=== PATIENT | female | born 1965 | race Caucasian/White ===

== ENCOUNTER 2020-05-19 06:30 | Inpatient (IN) | payer MEDICARE ==
[2020-05-19 07:32] VITALS: BP 113/70
[2020-05-19] MEDS ORDERED: Acetaminophen 500 MG TAB PO PRN (12:30)
[2020-05-19] MEDS ORDERED: Maalox 30 mL Cup PO PRN (12:30)
[2020-05-19] MEDS ORDERED: Magnesium Hydroxide (MOM) 30 mL UDC PO PRN (12:30)
--- NOTE | 2020-05-19 14:53 | History & Physical ---
ADMIT DATE: 05/19/2020 CHIEF COMPLAINT: Suicidal ideations. HISTORY OF PRESENT ILLNESS: We have a 54-year-old female with rheumatoid arthritis, bipolar, who is admitted for suicidal ideation. The patient went to [facility] Emergency Room where she was having thoughts of hurting herself. The patient's outpatient meds have been adjusted. No nausea, vomiting, abdominal pain, diarrhea. PAST MEDICAL HISTORY: 1. Rheumatoid arthritis. 2. Bipolar. PAST SURGICAL HISTORY: Right knee replacement. MEDICATIONS: List reviewed. ALLERGIES: None. SOCIAL HISTORY: Tobacco, IV drugs, ETOH negative. PHYSICAL EXAMINATION: VITAL SIGNS: Temperature is 98.6, pulse 70, respirations 20, blood pressure 113/70. HEENT: Normocephalic, atraumatic head exam. NECK: Supple. CARDIOVASCULAR: Regular rate and rhythm. LUNGS: Decreased breath sounds. ABDOMEN: Soft, nontender. EXTREMITIES: No edema, cyanosis or clubbing. NEUROLOGIC: Cranial nerves are grossly intact, although the patient was very uncooperative. ASSESSMENT AND PLAN: 1. Rheumatoid arthritis. 2. Bipolar. The patient will continue with Naprosyn for treatment of rheumatoid arthritis. We will check COVID for asymptomatic spread. The patient will get routine labs. JOB# [id number]
--- NOTE | 2020-05-19 17:05 | History & Physical ---
ADMIT DATE: 05/19/2020 IDENTIFYING INFORMATION: The patient is a 54-year-old female. CHIEF COMPLAINT: The patient was admitted on a hold for danger to self. Apparently, the Emergency Room physician requested a psych evaluation. HISTORY OF PRESENT ILLNESS: The patient was having recent thoughts of killing herself. She is taking medications for bipolar disorder, but states they are not working. She stays her thoughts make her to kill herself via overdose on pills. History of previous placement on a hold. When I talked to her, she confirmed the above. The patient reports long history of depression. Also, she has been hospitalized many times. She also used THC for pain, appetite and sleep. The patient reports the doctor gave her Abilify, it did not work. She reports that she feel shaky in her head. Apparently, she had a black eye, left side and she said she fell and hit her head, no loss of consciousness. She reports she was hospitalized at least 10 times because of bipolar disorder. She currently sleeps well, eats well. She denies prior suicide attempt; however, she has been on a hold before. The patient reports any auditory or visual hallucinations. She says she is not impulsive, did not show up a lot. She denies any visual hallucination or paranoia. She denies having any anger outbursts. She mainly has racing thoughts. ONSET OF ILLNESS: The patient reports she has been having issues for a long period of time since she cannot remember. SUBSTANCE ABUSE HISTORY: The patient uses marijuana to help her with her sleep, appetite and pain. PAST MEDICAL HISTORY: The patient has rheumatoid arthritis since 1971. She has been in a lot of pain, nothing helped her. She is in a wheelchair. ALLERGIES: SHE IS ALLERGIC TO SULFA, ANTIBIOTIC AND NEOMYCIN. I will defer the rest to the medical doctor. FAMILY AND SOCIAL HISTORY: The patient reports she is single, never . She has one daughter, 26 years of age She lives with the father of her daughter, but they are not together. They live separately. 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 She is on 6 months of disability leave. FAMILY HISTORY: The patient reported that her mother have bipolar disorder. She has a sister who has bipolar disorder, schizophrenia. Brother who is schizophrenic, paranoid. No family history of suicide or substance abuse. The patient denies having any legal problem. Denies any history of abuse. MENTAL STATUS EXAMINATION: The patient is appropriately dressed, not very groomed. She was in a wheelchair. She was alert and oriented to place, person, time, and situation. She reports feeling manicky, irritable. She denies any auditory or visual hallucination or paranoia. She reports sleeps well, eats well, having racing thoughts, wanting to kill herself, but when I talked to her, she said the suicidal ideations are not as prominent. She was willing to contract for safety. Denies prior suicide attempt. Denies any intent to harm anyone. Denies any visual loss or paranoia. She seems to have average intelligence just by able to give information, fund of knowledge and knowledge of the [employer]. Concentration is fair, able to answer questions appropriately, spell her first name forward and backward. She was pleasant, cooperative in general. Her mood is depressed. Affect is sad. She seems to have average intelligence just by able to give information, fund of knowledge and knowledge of the [employer]. Concentration fair, able to answer questions appropriately, spell her first name forward and backward. Long-term is good for age, date of . Recent memory is good. She cannot remember events such as coming here, what she ate for breakfast. Immediate memory before I saw her was 3/3 in 5 minutes. Insight about her illness is fair. She knows she has a problem. Judgment is poor with her wanting to harm herself. IMPRESSION: Bipolar disorder, depressed. MEDICAL DIAGNOSES: Rheumatoid arthritis. Her assets, she wants to get help. She has a job. She has a place to live. Negative poor coping skills. PLAN: The patient will be stabilized on medication. She wants me to increase her Abilify dose. She told me it did not work for her, so I will see if she could use something else. We will do group therapy, milieu therapy, and individual therapy. ESTIMATED LENGTH OF STAY: 3-7 days. DISCHARGE CRITERIA: Decreased sarah, decrease in depression, no longer suicidal. After discharge, outpatient treatment. JOB# [id number] [facility]
[2020-05-20 06:06] LABS: A1C 5.2 % (4.8-5.6)
[2020-05-20] MEDS: Multivitamin Tab PO SCH ×2 (09:33→09:56)
--- NOTE | 2020-05-21 07:56 | Progress Notes ---
DATE: 05/20/2020 SUBJECTIVE: The patient was seen, chart reviewed, and discussed with staff. The patient continues to endorse suicidal ideations to overdose, continues to have flight of ideas and impulsivity. She has, however, been generally redirectable, has been compliant with medications, denying any side effects. She states that she feels safe on the unit. PLAN: The patient continues to be actively psychotic, so that she will require inpatient care center and treatment. We will monitor on a daily basis for response to medications and titrate medications as needed. JOB# [id number]
[2020-05-21] MEDS: Multivitamin Tab PO SCH (08:26)
--- NOTE | 2020-05-21 17:43 | Progress Notes ---
DATE: SUBJECTIVE: The patient was seen, chart reviewed, and discussed with staff. The patient continues to have very poor insight, is very fixated on being discharged. The patient is here after endorsing suicidal ideations to overdose. Generally denying or minimizing events leading to her admission. She has, however, been compliant with medications, following unit rules and directions. PLAN: The patient continues to be very manic in presentation, impulsive with stated suicidal ideation, so that she will require inpatient care center and treatment. We will monitor on a daily basis for response to medications and titrate medications as needed. JOB# [id number]
[2020-05-22] MEDS: Multivitamin Tab PO SCH (09:17)
--- NOTE | 2020-05-22 19:02 | Internal Medicine Prog Note ---
Internal Medicine Subjective - Subjective Service Date: 05/22/20 Patient seen and examined:: without staff Patient is:: awake Per staff patient has:: no adverse event, no episodes of fall Internal Medicine Objective - Results Recent Labs: Laboratory Last Values POC Glucose 106 MG/DL (70 - 105) H 05/19/20 07:47 Triglycerides 170 mg/dL (30-150) H 05/19/20 13:00 Cholesterol 164 mg/dL (<200) 05/19/20 13:00 LDL Cholesterol 87 mg/dL (0-129) 05/19/20 13:00 HDL Cholesterol 59 mg/dL (>55) 05/19/20 13:00 Coronavirus (PCR) Negative (Negative) 05/19/20 06:50 - Physical Exam Vitals and I&O: Vital Signs Temp 97.2 F 05/22/20 14:36 Pulse 74 05/22/20 14:36 Resp 18 05/22/20 14:36 BP 104/55 05/22/20 14:36 Pulse Ox 98 05/22/20 14:36 Intake & Output 05/22/20 05/22/20 05/23/20 06:59 18:59 06:59 Intake Total 280 1000 Balance 280 1000 Intake: Oral 280 1000 Other: # Voids 1 4 # Bowel Movements 0 1 Active Medications: Current Medications Acetaminophen (Tylenol Extra Strength) 1,000 mg PO Q6H PRN PRN Reason: Pain (Moderate 4-6) Stop: 07/18/20 12:29 Last Admin: 05/22/20 18:49 Dose: 1,000 mg Al Hydrox/Mg Hydrox/Simethicone (Maalox) 30 ml PO Q4HR PRN PRN Reason: GI DISTRESS Stop: 07/18/20 12:29 Aripiprazole (Abilify) 5 mg PO HS ALESHA; Protocol Stop: 07/18/20 20:59 Last Admin: 05/21/20 20:50 Dose: 5 mg Escitalopram Oxalate (Lexapro) 20 mg PO DAILY ALESHA; Protocol Stop: 07/19/20 08:59 Last Admin: 05/22/20 09:17 Dose: 20 mg Ibuprofen (Motrin) 400 mg PO Q4H PRN PRN Reason: Pain (Severe 7-10) Stop: 07/18/20 12:29 Last Admin: 05/21/20 20:51 Dose: 400 mg Ibuprofen (Advil) 200 mg PO Q6HR PRN PRN Reason: Pain (Mild 1-3) Lamotrigine (Lamictal) 100 mg PO DAILY ALESHA; Protocol Stop: 07/19/20 08:59 Last Admin: 05/22/20 09:17 Dose: 100 mg Lamotrigine (Lamictal) 200 mg PO HS ALESHA; Protocol Stop: 07/18/20 20:59 Last Admin: 05/21/20 20:50 Dose: 200 mg Lorazepam (Ativan) 0.5 mg PO Q4HR PRN; Protocol PRN Reason: Anxiety Stop: 06/18/20 12:29 Magnesium Hydroxide (Milk Of Magnesia) 30 ml PO HS PRN PRN Reason: Constipation Mirtazapine (Remeron) 15 mg PO HS ALESHA; Protocol Stop: 07/18/20 20:59 Last Admin: 05/21/20 20:50 Dose: 15 mg Multivitamins/Vitamin C (Theragran) 1 tab PO DAILY [facility] Stop: 07/19/20 08:59 Last Admin: 05/22/20 09:17 Dose: 1 tab Naproxen (Naprosyn) 250 mg PO DAILY [facility] Stop: 07/19/20 08:59 Last Admin: 05/22/20 09:17 Dose: 250 mg General: weak HEENT: NC/AT Neck: Supple Lungs: CTAB Cardiovascular: RRR, Normal S1, Normal S2 Abdomen: soft Extremities: clear Neurological: no change Internal Medicine Assmt/Plan - Assessment Assessment: 1. R.A. 2. Bipolar - Plan Plan: continue NSAIDS continue supportive care d/w rNidan. reviewed complete medical records
--- NOTE | 2020-05-23 01:27 | Progress Notes ---
DATE: 05/22/2020 Case was discussed with staff of the patient, reviewed records. The patient reports she is feeling better. She is sleeping better, eating better. She denies any current intent to harm herself or anyone. Continues to be fixated on discharge. The patient was having thoughts of overdose. However, she is minimizing it. Now, she says she is happy with the medicine. She no longer feels that way. We will try to get information from her family to verify that she has a place to go and she feels okay to go back there and will have her sign voluntary. She believes the medication is working well for her. We will continue outpatient group therapy, milieu therapy, and adjust medications as needed. JOB# [id number]
[2020-05-23] MEDS: Multivitamin Tab PO SCH (09:12)
--- NOTE | 2020-05-23 12:44 | Discharge Summary ---
DATE OF DISCHARGE: 05/23/2020 IDENTIFYING INFORMATION: The patient is a 54-year-old female. HISTORY OF PRESENT ILLNESS: The patient is holding herself and the Emergency Room physician requested a psych evaluation. The patient was having thoughts of killing herself. She was taking medication for bipolar disorder and was stated that they are not working. She states that her thoughts make her want to kill herself via overdose on pills. History of previous placement on the hold. When I talked to her, she confirmed the above. She reports long history of depression. She has been hospitalized many times. She also used THC for pain. Appetite and sleep is okay. She reports that the doctor gave her Abilify, it did not work; however, later told me she wants to be on Abilify and increase the dose to 5 mg. She felt shaky in her head. She has a black eye on the left side. She said that she fell and hit her head, no loss of consciousness. She reports she was hospitalized at least 10 times because of bipolar disorder. She sleeps well. She eats well. She denies any prior suicide attempt; however, she has been on hold before. She reported no auditory or visual hallucination and paranoia. She says she is not impulsive. She denies visual hallucination or paranoia. She denies having anger outbursts. She mainly have racing thoughts. She has been having issues with rheumatoid arthritis , she had remember using marijuana to help with sleep, appetite and pain. The patient with a history of rheumatoid arthritis, lot of pain, she was on a wheelchair. The patient is currently on leave from work. 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 There are no longer together. 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 ALLERGIES: THE PATIENT IS ALLERGIC TO SULFA, ANTIBIOTIC, NEOMYCIN. COURSE IN THE HOSPITAL: The patient was diagnosed with bipolar disorder, depressed, and cannabis abuse. The patient was started on Abilify 5 mg daily. The patient was continued with Lexapro 20 mg daily. The patient also was continued on Lamictal 100 mg in the morning, 200 mg at bedtime and Remeron 15 mg at bedtime. She was also on multivitamin, Naprosyn, ibuprofen. The patient progressively got better. She signed voluntary. We called her family, they assured us that she will be fine. The patient never tried to harm herself before. So as she was doing well. No longer having any intent to harm herself or anyone. Sleeping well, eating well, stable on the medication, no longer having racing thoughts, felt she could be discharged to a lesser level of care. CONDITION ON DISCHARGE: The patient is appropriately dressed and groomed. No suicidal ideation, no homicidal ideation, no paranoia, oriented to place, person, time, and situation. The patient is functioning well, can take care of her ADLs and functioning well socially. FINAL DIAGNOSES: Bipolar disorder, manic, cannabis abuse. MEDICAL DIAGNOSIS: Rheumatoid arthritis deferred to the medical doctor. The patient will follow up with psychiatrist and primary care physician ____. EXPECTED OUTCOME: Stable, the patient complies above. JOB# [id number] [facility]OS[facility]
== END 2020-05-23 09:55 | disposition home or self-care (01) | DRG 885 ==
LOC: GERO 06:30
PROVIDERS: ADMIT Psychiatry & Neurology Psychiatry; ATTEND Psychiatry & Neurology Psychiatry
DX: F31.9 Bipolar disorder, unspecified (principal); R45.851 Suicidal ideations; M06.9 Rheumatoid arthritis, unspecified; F20.0 Paranoid schizophrenia; Z20.828 Contact with and (suspected) exposure to other viral communicable diseases; Z96.651 Presence of right artificial knee joint; Z99.3 Dependence on wheelchair; Z88.2 Allergy status to sulfonamides; Z88.1 Allergy status to other antibiotic agents; Z88.8 Allergy status to other drugs, medicaments and biological substances; Z79.899 Other long term (current) drug therapy
CPT/HCPCS: 36415-UA; 80061-TC; 82948-90; 83036-90; 90899; G0410; U0003-CS; Z7610